=== PATIENT | female | born 1945 | race Caucasian/White ===

== ENCOUNTER → 2016-09-01 | Day surgery (SDC) | payer MEDICARE, BC ==
[~2016-09-01] MED LIST: ALPRAZOLAM PO; AMIODARONE PO; ASACOL400 MG PO; ASPIRIN325 M1 PO; AZULFIDINE PO; AZULFIDINE500 M1 PO; BACTRIM DS TABL1 TA1 PO; CALCIUM + D 6001 TA1 PO; CALCIUM 600 + D1 TA1 PO; CALCIUM 600 +1 EAC5 PO; COUMADIN PO; COUMADIN2.5 MG PO; COUMADIN5 MG PO; ECOTRIN325 MG PO; FLEXERIL10 M1 PO; HCTZ PO; HYDROCHLOROTH12.5 MG PO; IMURAN50 MG PO; LIPITOR20 MG PO; MAG-OXIDE400 MG PO; MELATONIN10 M3 PO; MINOCIN50 M1 PO; MIRALAX255 GM PO; NITROSTAT0.4 MG SL; NORVASC2.5 MG PO; OMEPRAZOLE40 M1 PO; SULFASALAZINE500 M2 PO; ZYRTEC PO
--- NOTE | ~2016-09-01 | OR ---
Unit #: [id number] #: [id number] Patient: ELISSA GONZALEZ [id number] [address] [place], [place] [address] [id number] MR#: [id number] NAME: ELISSA GONZALEZ ROOM: Date of Procedure: 09/01/2016 Admission Date: 09/01/2016 Surgeon: Yoni Beatty M.D. : 1945 Attending Physician: Yoni Beatty M.D. Primary Care Physician: Jose Garcia M.D. OPERATIVE REPORT OPERATING PHYSICIAN Jose Garcia M.D. PREOPERATIVE DIAGNOSES The patient has come for surveillance colonoscopy as she has personal history of ulcerative colitis, pancolitis more than 10 years standing. PROCEDURES PERFORMED 1. Colonoscopy and polypectomy. 2. Colonoscopy with biopsies. POSTOPERATIVE DIAGNOSES 1. Single sessile polyp in the transverse colon. This was removed using snare polypectomy. 2. Mild sigmoid and descending colon diverticulosis. 3. Rest of the examination up to cecum and terminal ileum was normal. The quality of prep was excellent. The patient has ulcerative colitis in complete remission. Biopsies obtained from the right colon, transverse colon, and from the sigmoid and descending colon and sent for histology to look for any evidence of dysplasia. RECOMMENDATIONS Repeat colonoscopy in 2 to 3 years. SEDATION USED MAC. DESCRIPTION OF PROCEDURE Following detailed explanation of the potential risks and complications of a colonoscopy, namely perforation, bleeding, and complications related to sedation, the patient was brought to GI lab and laid in the left lateral decubitus position. A digital rectal examination was performed, which was normal. Lubricated tip of the Olympus video colonoscope was inserted through the anus and advanced under direct vision. The scope was advanced and passed up to sigmoid into descending colon. Multiple medium-sized diverticula were seen in this area. The scope tip was then navigated all the way up to cecum with visualization of the ileocecal valve and the appendiceal orifice. Preparation was excellent with good visualization and photodocumentation was obtained. Last several inches of the terminal ileum also visualized after intubation of the ileocecal valve and appeared normal. Successive segments of the colonic mucosa were examined upon withdrawal. A polyp about 7 mm in size was seen in the mid transverse Unit #: [id number] #: [id number] Patient: ELISSA GONZALEZ colon. This was removed using snare polypectomy. No additional polyps were noted. The mucosa throughout appeared normal. Biopsies obtained from the right colon, transverse colon, and sigmoid colon and sent for histology in separate bottles to look for any evidence of dysplasia. Other than the diverticulosis, no other abnormalities noted. The patient did not have any hemorrhoids at anal verge. The scope was then withdrawn. The patient returned to the recovery area. She tolerated the procedure without any postprocedure complications. Dictated by... Aimee Green/rehan TD: 09/02/2016 00:07 JOB #: [id number] OPERATIVE REPORT Page 1 of 1 X Yoni Beatty MD X PROCEDURE OPERATIVE NOTE
== END | disposition home or self-care (01) ==
LOC: COPS 06:22
DX: Z12.11 Encounter for screening for malignant neoplasm of colon (principal); D12.3 Benign neoplasm of transverse colon; K52.9 Noninfective gastroenteritis and colitis, unspecified; K57.30 Diverticulosis of large intestine without perforation or abscess without bleeding; I48.91 Unspecified atrial fibrillation; I10 Essential (primary) hypertension; E78.5 Hyperlipidemia, unspecified; I34.1 Nonrheumatic mitral (valve) prolapse; Z87.19 Personal history of other diseases of the digestive system; Z88.5 Allergy status to narcotic agent; Z88.8 Allergy status to other drugs, medicaments and biological substances; Z79.02 Long term (current) use of antithrombotics/antiplatelets; Z79.82 Long term (current) use of aspirin; Z79.899 Other long term (current) drug therapy; Z90.49 Acquired absence of other specified parts of digestive tract; Z98.890 Other specified postprocedural states
CPT/HCPCS: 88305

== ENCOUNTER → 2016-12-06 | Outpatient (CLI) | payer MEDICARE, BC ==
[2016-12-06 10:57] LABS: HEMATOCRIT 37.5 % (35.0-45.0); HEMOGLOBIN 12.4 gm/dL (12.0-16.0); MEAN CELL VOLUME 83.1 FL (83-96); MEAN CORPUSCULAR HEMOGLOBIN 27.4 PG (28-34); MEAN PLATELET VOLUME 9.1 FL (6.5-11.5); RED BLOOD COUNT 4.52 X10e (3.90-5.30); RED CELL DISTRIBUTION WIDTH 17.1 % (11.0-15.5); WHITE BLOOD COUNT 4.3 X10e3 (4.0-10.5)
[2016-12-06 10:59] LABS: ALBUMIN SERUM 4.2 g/dL (3.5-5.0); BILIRUBIN,TOTAL 0.4 mg/dL (0.2-2.0); BUN/CREATININE RATIO 18.88; CALCIUM SERUM 9.4 mg/dL (8.4-10.2); CREATININE SERUM 0.9 mg/dL (0.6-1.4); GLOM FILT RATE Estimated 63.5 mL/min (>60); POTASSIUM 4.4 mmol/L (3.5-5.1); PROTEIN TOTAL SERUM 7.6 g/dL (6.0-8.3)
== END | disposition home or self-care (01) ==
LOC: CLAB 09:53
PROVIDERS: Nurse Practitioner
DX: K51.90 Ulcerative colitis, unspecified, without complications (principal)
CPT/HCPCS: 36415; 80053; 85027